=== PATIENT | female | born 1965 | race Two or more races ===

== ENCOUNTER 2018-11-26 19:12 | Emergency (ER) | payer OTHER ==
[~2018-11-26] VITALS: Ht 167.6 cm; Wt 91.4 kg
[2018-11-26] MEDS ORDERED: SODIUM CHLORIDE FLUSH 10ML SYR IVF ONE (20:00)
[2018-11-26 20:16] LABS: BASOPHILS # (AUTO) 0.05 x10^3/uL (0-0.1); BASOPHILS % (AUTO) 1 % (0-1); EOSINOPHILS # (AUTO) 0.31 x10^3/uL (0-0.4); EOSINOPHILS % (AUTO) 3 % (1-7); LYMPHOCYTES # (AUTO) 2.73 x10^3/uL (1-3.4); LYMPHOCYTES % (AUTO) 30 % (22-44); MD NO; MEAN CORPUSCULAR HGB CONC 34.8 g/dL (32.4-35.8); MEAN CORPUSCULAR VOLUME 86.1 fL (80-100); MONOCYTES # (AUTO) 0.89 x10^3/uL (0.2-0.8); MONOCYTES % (AUTO) 10 % (2-9); NEUTROPHILS # (AUTO) 5.26 x10^3/uL (1.8-6.8); NEUTROPHILS % (AUTO) 57 % (42-75); PLATELET COUNT 268 x10^3/uL (130-400); RED BLOOD COUNT 3.92 x10^6/uL (3.82-5.3); RED CELL DISTRIBUTION WIDTH 13.2 % (9.6-15.2)
[2018-11-26 20:24] LABS: ALBUMIN 3.6 g/dL (3.4-5.0); ANION GAP 5 mmol/L (5-15); CALCIUM 8.7 mg/dL (8.5-10.1); CHLORIDE 109 mmol/L (98-107)
[2018-11-26 20:27] LABS: ALANINE AMINOTRANSFERASE 39 U/L (12-78); ALKALINE PHOSPHATASE 129 U/L (45-117); BILIRUBIN,TOTAL 0.4 mg/dL (0.2-1.0); CREATININE 0.65 mg/dL (0.55-1.02); TOTAL PROTEIN 6.5 g/dL (6.4-8.2)
--- NOTE | 2018-11-26 21:49 | NUR ---
pt called to room from lobby
--- NOTE | 2018-11-26 21:53 | NUR ---
Pt ambulated to restroom for UA with steady gait
[2018-11-26] MEDS ORDERED: OMNIPAQUE 350 MG/ML, 100ML BOTTLE ONE (22:26)
[2018-11-26] MEDS ORDERED: ONDANSETRON 2MG/ML, 2ML IVPush ONE (22:30)
[2018-11-26] MEDS ORDERED: LIDOCAINE 1%-EPI 1:100K, 20ML INFIL ONE (22:30)
[2018-11-26] MEDS ORDERED: MORPHINE SULFATE 4 MG/ML, 1ML IVPush PRN (22:30)
--- NOTE | 2018-11-26 22:47 | NUR ---
Pt has reddness, swelling and pain to umbilical area, has CT scan ordered by primary but reports pain is getting worse and belly button is draining blood and pus.
[2018-11-26] MEDS ORDERED: ONDANSETRON 2MG/ML, 2ML ONE (22:55)
[2018-11-26] MEDS ORDERED: MORPHINE SULFATE 4 MG/ML, 1ML ONE (22:56)
[2018-11-26 22:57] LABS: MICROSCOPIC NOT IND
[2018-11-26 23:02] LABS: CULTURE INDICATED? NO
[2018-11-26] MEDS ORDERED: LIDOCAINE 1%-EPI 1:100K, 20ML ONE (23:09)
--- NOTE | 2018-11-26 23:13 | NUR ---
Pt refuses morphine and zofran, pt reports 8/10 pain and nausea, RN offered to ask MD for other pain meds for pt, pt continues to refuse need for meds. Pt and family educated to contact RN if pt changes her mind
[2018-11-27] MEDS ORDERED: ONDANSETRON 2MG/ML, 2ML IVPush ONE
[2018-11-27] MEDS ORDERED: ONDANSETRON 2MG/ML, 2ML ONE (00:02)
--- NOTE | 2018-11-27 00:08 | NUR ---
Pt requesting nausea meds, medicated per CALLIE saldivar at bedside for I&D
[2018-11-27 00:23] VITALS: BP 152/75
== END 2018-11-27 00:26 | disposition home or self-care (01) ==
LOC: ED 11-27 00:25
DX: L02.216 Cutaneous abscess of umbilicus (principal); Z90.89 Acquired absence of other organs; Z90.49 Acquired absence of other specified parts of digestive tract; Z90.710 Acquired absence of both cervix and uterus
CPT/HCPCS: 10060; 36415; 74177; 80053; 81003; 83690; 85025; 96374; 99284; J2405; Q9967; 96372